=== PATIENT | female | born 1955 | race Asian ===

== ENCOUNTER 2017-01-15 14:02 | Inpatient (IN) | payer MEDICAID ==
[~2017-01-15] VITALS: Ht 157.5 cm; Wt 57.2 kg
[2017-01-15] MEDS ORDERED: LOSA25TA21 PO (14:07)
[2017-01-15] MEDS ORDERED: HYDR25TA PO (14:07)
[2017-01-15] MEDS ORDERED: ASPI-556 PO (14:07)
[2017-01-15] MEDS ORDERED: SIMV5TAB6 PO (14:07)
[2017-01-15] MEDS ORDERED: METF500T4 PO (14:07)
[2017-01-15 14:17] LABS: GLUCOSE,POINT OF CARE 119 MG/DL (70-110)
[2017-01-15 16:03] LABS: HEMATOCRIT 43.9 % (36-46); HEMOGLOBIN 14.6 g/dL (12.0-16.0); MEAN CORPUSCULAR HEMOGLOBIN 27.3 pg (26.0-34.0); MEAN CORPUSCULAR HGB CONC 33.2 G/dL (31.0-37.0); MEAN CORPUSCULAR VOLUME 82 fL (80-100); PLATELET COUNT (AUTO) 244 K/uL (150-450); RED BLOOD CELL COUNT(AUTO) 5.33 MIL/uL (4.00-5.20); RED CELL DISTRIBUTION WIDTH 13.9 % (11.5-14.5); WHITE BLOOD COUNT (AUTO) 13.4 K/uL (4.5-11.0)
[2017-01-15 16:17] LABS: CALCIUM, TOTAL 8.7 mg/dL (8.8-10.5); CREATININE 1.98 mg/dL (0.60-1.30); POTASSIUM 5.1 mmol/L (3.5-5.1)
[2017-01-15 16:22] LABS: ALBUMIN 3.9 g/dL (3.4-5.0); BILIRUBIN,TOTAL 0.6 mg/dL (0.1-1.0); TOTAL PROTEIN, SERUM 8.1 g/dL (6.4-8.2)
[2017-01-15 17:10] LABS: BAND NEUTROPHILS % (MANUAL) 47 % (1-5); EOSINOPHILS % (MANUAL) 1 % (1-6); LYMPHOCYTES % (MANUAL) 8 % (22-44); TOTAL CELLS COUNTED 100
[2017-01-15] MEDS ORDERED: MECLIZINE HCL 25 MG TABLET PO ONE (18:00)
[2017-01-15] MEDS ORDERED: SODIUM CHLORIDE 0.9% 1,000 ML IV ONE ×3 (18:00→22:15)
[2017-01-15] MEDS ORDERED: DIAZEPAM 5 MG TABLET PO ONE (18:00)
[2017-01-15] MEDS ORDERED: ACETAMINOPHEN 325 MG TABLET PO PRN ×2 (22:45→23:00)
[2017-01-15] MEDS ORDERED: DEXTROSE 50%-WATER 25 GM/50 ML SYRINGE IVP PRN (22:45)
[2017-01-15] MEDS ORDERED: BISACODYL 10 MG RECTAL RECTAL SUPPOSITORY PR PRN (22:45)
[2017-01-15] MEDS: SODIUM CHLORIDE 0.9% 1,000 ML IV SCH (22:52)
[2017-01-15] MEDS ORDERED: 0.9% SODIUM CHLORIDE 10 ML SYRINGE IVP PRN (23:00)
[2017-01-15] MEDS ORDERED: ONDANSETRON HCL 4 MG/2 ML VIAL IVP PRN (23:00)
[2017-01-16] VITALS (8 sets, daily range): BP systolic 103–127; BP diastolic 62–83
[2017-01-16] MEDS ORDERED: PNEUMOCOCCAL VACCINE POLYVALENT 0.5 ML VIAL [PPSV23] IM ONE (01:00)
[2017-01-16 07:11] LABS: BASOPHILS % (AUTO) 0.3 % (0.0-2.0); EOSINOPHILS % (AUTO) 1.5 % (1.0-6.0); HEMATOCRIT 34.3 % (36-46); HEMOGLOBIN 11.2 g/dL (12.0-16.0); LYMPHOCYTES # (AUTO) 1.5 K/uL (1.0-4.8); LYMPHOCYTES % (AUTO) 14.1 % (22.0-44.0); MEAN CORPUSCULAR HEMOGLOBIN 27.4 pg (26.0-34.0); MEAN CORPUSCULAR HGB CONC 32.6 G/dL (31.0-37.0); MEAN CORPUSCULAR VOLUME 84 fL (80-100); MONOCYTES # (AUTO) 0.7 K/uL (0.1-1.0); MONOCYTES % (AUTO) 6.6 % (2.0-9.0); NEUTROPHILS # (AUTO) 8.4 K/uL (1.8-7.7); NEUTROPHILS % (AUTO) 77.5 % (40.0-70.0); PLATELET COUNT (AUTO) 202 K/uL (150-450); RED BLOOD CELL COUNT(AUTO) 4.09 MIL/uL (4.00-5.20); RED CELL DISTRIBUTION WIDTH 14.1 % (11.5-14.5); WHITE BLOOD COUNT (AUTO) 10.8 K/uL (4.5-11.0)
[2017-01-16 07:35] LABS: CREATININE 1.39 mg/dL (0.60-1.30); POTASSIUM 4.4 mmol/L (3.5-5.1)
[2017-01-16 08:17] LABS: APPEARANCE,URINE CLEAR (CLEAR); GLUCOSE, URINE (UA) NEGATIVE (NEGATIVE); KETONES,URINE NEGATIVE (NEGATIVE); LEUKOCYTE ESTERASE ,URINE NEGATIVE (NEGATIVE); OCCULT BLOOD,URINE MODERATE (NEGATIVE); PROTEIN,URINE NEGATIVE (NEGATIVE)
[2017-01-16] MEDS: PANTOPRAZOLE SODIUM 40 MG DR TABLET PO SCH (08:22)
[2017-01-16] MEDS: SODIUM CHLORIDE 0.9% 1,000 ML IV SCH (08:22)
[2017-01-16] MEDS: HEPARIN SODIUM,PORCINE 5,000 UNITS/ML VIAL SQ SCH ×2 (08:22→21:19)
[2017-01-16] MEDS: DOCUSATE SODIUM 100 MG CAPSULE PO SCH ×2 (08:22→21:19)
[2017-01-16 08:39] LABS: ADD UA MICROSCOPIC YES
[2017-01-16 08:40] LABS: WBC,URINE 0-2 /HPF (0-5)
[2017-01-16 08:41] LABS: SQUAMOUS EPITHELIAL CELL,UR Rare /LPF (None Seen)
[2017-01-16] MEDS: INSULIN ASPART 100 UNITS/ML SQ PRN ×3 (12:05→21:20)
[2017-01-17 05:18] VITALS: BP 137/87
[2017-01-17 07:31] VITALS: BP 149/82
[2017-01-17] MEDS: PANTOPRAZOLE SODIUM 40 MG DR TABLET PO SCH (08:00)
[2017-01-17] MEDS: HEPARIN SODIUM,PORCINE 5,000 UNITS/ML VIAL SQ SCH (08:00)
[2017-01-17] MEDS: DOCUSATE SODIUM 100 MG CAPSULE PO SCH (08:00)
[2017-01-17 09:07] LABS: GLUCOSE,POINT OF CARE 144 MG/DL (70-110)
[2017-01-17 09:07] LABS: GLUCOSE,POINT OF CARE 120 MG/DL (70-110)
[2017-01-17 10:33] LABS: CALCIUM, TOTAL 8.6 mg/dL (8.8-10.5); CREATININE 1.21 mg/dL (0.60-1.30); POTASSIUM 4.2 mmol/L (3.5-5.1)
[2017-01-19 20:27] LABS: GLUCOSE COMMENT 1 Received Meds; GLUCOSE,POINT OF CARE 170 MG/DL (70-110)
[2017-01-19 20:27] LABS: GLUCOSE,POINT OF CARE 95 MG/DL (70-110)
[2017-01-19 20:27] LABS: GLUCOSE,POINT OF CARE 167 MG/DL (70-110)
== END 2017-01-17 11:00 | disposition home or self-care (01) | DRG 460 ==
LOC: EMS 14:04 → 5S 23:15 → 6N 01-16 18:15
PROVIDERS: ADMIT Internal Medicine; ATTEND Internal Medicine
DX: N17.9 Acute kidney failure, unspecified (principal); I10 Essential (primary) hypertension; E11.9 Type 2 diabetes mellitus without complications; D72.829 Elevated white blood cell count, unspecified; E78.00 Pure hypercholesterolemia, unspecified; E78.5 Hyperlipidemia, unspecified; E86.0 Dehydration; Z79.899 Other long term (current) drug therapy; Z79.84 Long term (current) use of oral hypoglycemic drugs
CPT/HCPCS: 70450; 76770; 82962; 90471; 93005; 96360; 96361; 99285; J1644; J7030

== ENCOUNTER 2017-09-10 02:16 | Emergency (ER) | payer MEDICAID, OTHER ==
[~2017-09-10] VITALS: Ht 162.6 cm; Wt 79.5 kg
[~2017-09-10 02:16] MED LIST: ASPI-556 PO; SIMV5TAB6 PO
[2017-09-10] MEDS ORDERED: HYDR12.530 PO (02:26)
[2017-09-10] MEDS ORDERED: LOSA50TA37 PO (02:26)
[2017-09-10] MEDS ORDERED: FENO48TA4 PO (02:26)
[2017-09-10] MEDS ORDERED: GLIM2 PO (02:26)
[2017-09-10] MEDS ORDERED: ASPI81TA33 PO (02:26)
[2017-09-10 02:32] LABS: GLUCOSE,POINT OF CARE 122 MG/DL (70-110)
[2017-09-10 03:02] LABS: BASOPHILS % (AUTO) 0.5 % (0.0-2.0); EOSINOPHILS % (AUTO) 6.7 % (1.0-6.0); HEMATOCRIT 42.5 % (36-46); HEMOGLOBIN 14.4 g/dL (12.0-16.0); LYMPHOCYTES # (AUTO) 2.5 K/uL (1.0-4.8); LYMPHOCYTES % (AUTO) 34.3 % (22.0-44.0); MEAN CORPUSCULAR HEMOGLOBIN 28.7 pg (26.0-34.0); MEAN CORPUSCULAR HGB CONC 33.9 G/dL (31.0-37.0); MEAN CORPUSCULAR VOLUME 85 fL (80-100); MONOCYTES # (AUTO) 0.6 K/uL (0.1-1.0); MONOCYTES % (AUTO) 8.2 % (2.0-9.0); NEUTROPHILS # (AUTO) 3.7 K/uL (1.8-7.7); NEUTROPHILS % (AUTO) 50.3 % (40.0-70.0); PLATELET COUNT (AUTO) 316 K/uL (150-450); RED BLOOD CELL COUNT(AUTO) 5.03 MIL/uL (4.00-5.20); RED CELL DISTRIBUTION WIDTH 13.2 % (11.5-14.5); WHITE BLOOD COUNT (AUTO) 7.4 K/uL (4.5-11.0)
[2017-09-10 03:14] LABS: CALCIUM, TOTAL 9.8 mg/dL (8.8-10.5); CREATININE 1.43 mg/dL (0.60-1.30); POTASSIUM 3.8 mmol/L (3.5-5.1)
[2017-09-10 03:15] LABS: PROTHROMBIN TIME 10.3 SEC (9.4-11.6)
[2017-09-10 03:20] LABS: ALBUMIN 4.1 g/dL (3.4-5.0); BILIRUBIN,TOTAL 0.3 mg/dL (0.1-1.0)
[2017-09-10] MEDS ORDERED: MECLIZINE HCL 25 MG TABLET PO ONE (04:45)
[2017-09-10 05:55] LABS: APPEARANCE,URINE CLEAR (CLEAR); GLUCOSE, URINE (UA) NEGATIVE (NEGATIVE); KETONES,URINE NEGATIVE (NEGATIVE); LEUKOCYTE ESTERASE ,URINE TRACE (NEGATIVE); OCCULT BLOOD,URINE SMALL (NEGATIVE); PROTEIN,URINE SEE CONFIRM (NEGATIVE)
[2017-09-10 06:03] LABS: ADD UA MICROSCOPIC YES
[2017-09-10] MEDS ORDERED: SODIUM CHLORIDE 0.9% 1,000 ML IV ONE (06:15)
[2017-09-10 06:22] LABS: SULFOSALICYLIC ACID,URINE 1+ (Negative); WBC,URINE 0-2 /HPF (0-5)
[2017-09-10 06:23] LABS: RENAL EPITHELIAL CELLS,URINE Rare /LPF (None Seen); SQUAMOUS EPITHELIAL CELL,UR Rare /LPF (None Seen)
[2017-09-10 06:47] VITALS: BP 134/86
== END 2017-09-10 07:31 | disposition home or self-care (01) ==
LOC: EMS 02:17
DX: E11.22 Type 2 diabetes mellitus with diabetic chronic kidney disease (principal); I12.9 Hypertensive chronic kidney disease with stage 1 through stage 4 chronic kidney disease, or unspecified chronic kidney disease; N18.9 Chronic kidney disease, unspecified; R42 Dizziness and giddiness; E78.00 Pure hypercholesterolemia, unspecified; Z79.82 Long term (current) use of aspirin
CPT/HCPCS: 36415; 71010; 80053; 81001; 82962; 84484; 85025; 85610; 85730; 93005; 99285; J7030

== ENCOUNTER → 2018-11-04 | Outpatient (CLI) | payer OTHER ==
[~2018-11-04] MED LIST changes: +ASPI81TA87 PO; +FENO48TA4 PO; +GLIM2 PO; +HYDR12.530 PO; +LOSA50TA64 PO; +SIMV5TAB59 PO; -SIMV5TAB6 PO
== END | disposition home or self-care (01) ==
LOC: RADPV 08:23
PROVIDERS: ATTEND Internal Medicine Nephrology
DX: I12.9 Hypertensive chronic kidney disease with stage 1 through stage 4 chronic kidney disease, or unspecified chronic kidney disease (principal); E11.22 Type 2 diabetes mellitus with diabetic chronic kidney disease; N18.9 Chronic kidney disease, unspecified; K76.0 Fatty (change of) liver, not elsewhere classified
CPT/HCPCS: 76700

== ENCOUNTER 2023-06-05 14:21 | Emergency (ER) | payer MEDICARE, OTHER ==
[~2023-06-05] VITALS: Ht 149.9 cm; Wt 54.5 kg
[~2023-06-05 14:21] MED LIST changes: +FENO48TA10 PO; -FENO48TA4 PO; -HYDR12.530 PO; +HYDR12.56 PO; +LOSA-382 PO; -LOSA50TA64 PO
[2023-06-05] MEDS ORDERED: DULA1.5P SQ (14:29)
[2023-06-05] MEDS ORDERED: METF-1211 PO (14:29)
[2023-06-05] MEDS ORDERED: ATOR20TA65 PO (14:29)
[2023-06-05 15:13] LABS: BASOPHILS % (AUTO) 0.3 % (0.0-2.0); EOSINOPHILS % (AUTO) 3.9 % (1.0-6.0); HEMOGLOBIN 12.5 g/dL (12.0-16.0); LYMPHOCYTES # (AUTO) 1.2 K/uL (1.0-4.8); LYMPHOCYTES % (AUTO) 17.4 % (22.0-44.0); MEAN CORPUSCULAR HEMOGLOBIN 28.9 pg (26.0-34.0); MEAN CORPUSCULAR VOLUME 88 fL (80-100); MONOCYTES # (AUTO) 0.3 K/uL (0.1-1.0); MONOCYTES % (AUTO) 4.8 % (2.0-9.0); NEUTROPHILS # (AUTO) 5.2 K/uL (1.8-7.7); NEUTROPHILS % (AUTO) 73.6 % (40.0-70.0); PLATELET COUNT (AUTO) 255 K/uL (150-450); RED BLOOD CELL COUNT(AUTO) 4.33 MIL/uL (4.00-5.20); RED CELL DISTRIBUTION WIDTH 14.9 % (11.5-14.5); WHITE BLOOD COUNT (AUTO) 7.1 K/uL (4.5-11.0)
[2023-06-05] MEDS ORDERED: ONDANSETRON HCL 4 MG/2 ML VIAL IVP ONE (15:30)
[2023-06-05] MEDS ORDERED: ACETAMINOPHEN 500 MG TABLET PO ONE (15:30)
[2023-06-05] MEDS ORDERED: SODIUM CHLORIDE 0.9% 1,000 ML IV ONE (15:30)
[2023-06-05] MEDS ORDERED: MECLIZINE HCL 25 MG TABLET PO ONE (15:30)
[2023-06-05 15:32] VITALS: TEMP 97.9
[2023-06-05 15:37] LABS: TROPONIN I-HIGH SENSITIVITY 5 ng/L (<51)
[2023-06-05 16:28] LABS: CALCIUM, TOTAL 9.8 mg/dL (8.8-10.5); CREATININE 1.83 mg/dL (0.60-1.30); POTASSIUM 4.7 mmol/L (3.5-5.1)
[2023-06-05 16:34] LABS: BILIRUBIN,TOTAL 0.4 mg/dL (0.1-1.0)
[2023-06-05 16:42] LABS: ALBUMIN 4.2 g/dL (3.4-5.0)
[2023-06-05 17:44] LABS: APPEARANCE,URINE CLEAR (CLEAR); BILIRUBIN,URINE NEGATIVE (NEGATIVE); COLOR,URINE COLORLESS (YELLOW); GLUCOSE, URINE (UA) NEGATIVE (NEGATIVE); KETONES,URINE NEGATIVE (NEGATIVE); LEUKOCYTE ESTERASE ,URINE NEGATIVE (NEGATIVE); NITRATE,URINE NEGATIVE (NEGATIVE); OCCULT BLOOD,URINE NEGATIVE (NEGATIVE); PH,URINE 6.5 (5.0-8.0); PROTEIN,URINE 100-200,SEE CONFIRM mg/dL (NEGATIVE); SPECIFIC GRAVITIY, URINE 1.011 (1.003-1.030); UROBILINOGEN,URINE <=1.0 mg/dL (<=1.0)
[2023-06-05] MEDS ORDERED: ONDA-104 PO (17:49)
[2023-06-05] MEDS ORDERED: MECL-134 PO (17:49)
[2023-06-05] MEDS ORDERED: ACET-66 PO (17:49)
[2023-06-05 17:52] VITALS: BP 133/79; PULSE 78; RESP 20
[2023-06-05 18:01] LABS: BACTERIA,URINE None Seen /HPF (None Seen); RBC,URINE None Seen /HPF (0-2); SULFOSALICYLIC ACID,URINE 3+ (Negative); WBC,URINE None Seen /HPF (0-5)
== END 2023-06-05 18:20 | disposition home or self-care (01) ==
LOC: EMS 14:26
DX: I12.9 Hypertensive chronic kidney disease with stage 1 through stage 4 chronic kidney disease, or unspecified chronic kidney disease (principal); E11.22 Type 2 diabetes mellitus with diabetic chronic kidney disease; N18.9 Chronic kidney disease, unspecified; E11.65 Type 2 diabetes mellitus with hyperglycemia; R11.10 Vomiting, unspecified; R42 Dizziness and giddiness
CPT/HCPCS: 99285; 96374; 70450; 96361; 80053; 81001; 82962; 83690; 84484; 85025; 36415; 93005; J2405; J7030; 81002